=== PATIENT | male | born 1980 | race Caucasian/White ===

== ENCOUNTER 2017-11-18 14:05 | Emergency (ER) | payer OTHER ==
[~2017-11-18] VITALS: Ht 167.6 cm; Wt 65.8 kg
--- NOTE | 2017-11-18 14:05 | NUR ---
Pt placed in hallway with Sales Support Technician
[2017-11-18 14:08] VITALS: BP_SYST 101
--- NOTE | 2017-11-18 14:15 | NUR ---
ER at bedside examining patient.
[2017-11-18] MEDS ORDERED: BACITRACIN 1 GM OINT TP ONE (14:30)
[2017-11-18] MEDS ORDERED: DIPH-TET-PERTUS Vaccine 0.5 ML VIAL (ADACEL) IM ONE (14:30)
--- NOTE | 2017-11-18 14:30 | NUR ---
X ray is at bedside
--- NOTE | 2017-11-18 14:39 | NUR ---
Tdap was given to pt, right hand is being cleaned with NS, pat dried and bacitracin was applied and a bandaid. Pt tolerated well
--- NOTE | 2017-11-18 15:08 | NUR ---
Patient given written and verbal discharge instructions and verbalizes understanding. ER MD discussed with patient the results and treatment provided. Patient in stable condition. ID arm band removed. Rx of humalog, humulin n, keflex, bacitracin, glucometer and diabetic test strips given. Patient educated on pain management and to follow up with PMD. Pain Scale 3. Opportunity for questions provided and answered.
[2017-11-18 15:10] VITALS: BP_SYST 105
== END 2017-11-18 15:08 ==
LOC: SED 14:05
DX: S60.511A Abrasion of right hand, initial encounter (principal); E11.9 Type 2 diabetes mellitus without complications; I10 Essential (primary) hypertension; W18.09XA Striking against other object with subsequent fall, initial encounter; Y93.89 Activity, other specified; Y92.89 Other specified places as the place of occurrence of the external cause; Y99.8 Other external cause status
CPT/HCPCS: 90715; 99284